=== PATIENT | female | born 1940 | race Caucasian/White ===

== ENCOUNTER → 2023-12-02 13:50 | Outpatient (REF) | payer OTHER, SELFPAY | LOC: HWRAD 13:50 | PROVIDERS: ATTENDING PHYSICIAN Internal Medicine Critical Care Medicine; FAMILY PHYSICIAN Family Medicine | DX: R91.8 Other nonspecific abnormal finding of lung field (principal) | CPT/HCPCS: 71046 ==

== ENCOUNTER → 2023-12-21 12:41 | Outpatient (REF) | payer OTHER, SELFPAY | LOC: HWRAD 12:41 | PROVIDERS: ATTENDING PHYSICIAN Internal Medicine Critical Care Medicine; FAMILY PHYSICIAN Family Medicine; REFERRING PHYSICIAN Specialist | DX: J44.9 Chronic obstructive pulmonary disease, unspecified (principal); R93.89 Abnormal findings on diagnostic imaging of other specified body structures; M17.11 Unilateral primary osteoarthritis, right knee | CPT/HCPCS: 71250; 73564 ==

== ENCOUNTER → 2024-01-11 15:58 | Outpatient (REF) | payer OTHER, SELFPAY | LOC: HWRAD 15:58 | PROVIDERS: ATTENDING PHYSICIAN Internal Medicine Critical Care Medicine; FAMILY PHYSICIAN Family Medicine | DX: J90 Pleural effusion, not elsewhere classified (principal) | CPT/HCPCS: 71046 ==

== ENCOUNTER → 2024-07-10 14:30 | Outpatient (REF) | payer OTHER, SELFPAY | LOC: HWRAD 14:30 | PROVIDERS: ATTENDING PHYSICIAN Internal Medicine Critical Care Medicine; FAMILY PHYSICIAN Family Medicine | DX: R91.8 Other nonspecific abnormal finding of lung field (principal) | CPT/HCPCS: 71250 ==

== ENCOUNTER → 2024-09-11 12:58 | Outpatient (REF) | payer OTHER, SELFPAY | LOC: HWWDC 12:58 | PROVIDERS: ATTENDING PHYSICIAN Family Medicine | DX: Z12.31 Encounter for screening mammogram for malignant neoplasm of breast (principal) | CPT/HCPCS: 77063; 77067 ==

== ENCOUNTER 2024-12-09 19:32 | Inpatient (IN) | payer OTHER, SELFPAY ==
[2024-12-09] VITALS (8 sets, daily range): BP systolic 106–159; BP diastolic 55–93; BMI 26.4; BMI 26.0
--- NOTE | 2024-12-09 15:26 | ED.GENMED ---
History of Present Illness
General
Chief Complaint: Fall
Source: patient
Time Seen by Provider: 12/09/24 14:52
History of Present Illness
History of Present Illness:
84-year-old female with past medical history of previous CVA, hypertension, hyperlipidemia, COPD, GERD, mild renal insufficiency, chronic pain syndrome stemming from previous right elbow fracture presenting to the emergency department after she
slipped on water on the bathroom floor Wednesday causing her to fall injuring her right hip and elbow, since that time has had progressive decreased ability to ambulate, only able to get up out of bed to use the commode that family put next to her
bed. Pain minimally controlled with her usual hydrocodone. Triage stated patient is on Eliquis however family believes she is on Plavix due to the previous CVA. Patient does not believe she had any head strike and denies any loss of consciousness
no other injuries were noted.
Past History
Past History
ED Past Medical History: COPD, CVA (06/2013), GERD, Hypercholesterolemia and Psychiatric (G.A.D.)
ED Past Surgical History: Tonsilectomy
Social History
Tobacco: Former smoker
Alcohol: Occasional
Drug: None
Personal:
Living: with family
Employment: Retired
Family History
Family History: Other (Reviewed and Noncontributory)
Review of Systems
Review of Systems
All Other Systems: ROS reviewed and negative except as documented in HPI and ROS
Phy Exam
Physical Exam
Physical Exam:
GENERAL: Alert , in no apparent distress
HEAD: Normocephalic atraumatic
EYE: Clear conjunctiva
NECK: Supple
ENT: o/p clr, mmm.
CARDIAC: Regular rate and rhythm .
LUNGS: Clear breath sounds bilaterally, no acute respiratory distress, no wheezes/rales/rhonchi
ABDOMEN: Soft, without focal tenderness, no r/g, no cvat
NEUROLOGICAL: Alert and oriented, no focal neuro deficits
SKIN: Warm and dry, 2 moderate-sized ecchymotic areas to the right lateral hip and then the right olecranon with direct tenderness over this area.
MUSCULOSKELETAL: No edema, well perfused. Patient allows for full range of motion of the right elbow with only mild discomfort. She is unable to flex or extend either leg at the pelvis secondary to pain/weakness. No focal areas of tenderness
below the knee. Patient is diffusely tender along the right lateral pelvis
PSYCH: Normal and appropriate interaction.
Scores
Heart Failure Risk
Heart Failure Risk Score: Not Applicable
Heart Score for Chest Pain Patients
STEMI patient?: Not applicable
Withdrawal Assessment of Alcohol
Withdrawal Assessment Completed?: Not applicable
Course
Orders/Labs/Results
Orders:
Orders
12/09/24 14:46
Elbow, 3 View, Right [CR Elbow - Right Min 3 Views] Urgent
Comment:
Reason For Exam: fall, pain
12/09/24 15:11
CT Head W/o Iv Contrast Urgent
Comment:
Reason For Exam: fall, anticoagulated
CT Pelvis W/o Iv Contrast Urgent
Comment:
Reason For Exam: fall, severe pain right hip/pelvis
Morphine Sulfate 4 mg IV NOW STA
12/09/24 15:30
Type+Screen Urgent
Basic Metabolic Panel Urgent
Complete Blood Count/With Diff Urgent
PTT Urgent
Prothrombin Time Urgent
12/09/24 15:37
Ondansetron Injectable [Zofran] 4 mg IV NOW STA
12/09/24 18:52
Admit/Transfer Patient As Directed
Co-Sign Provider:
Level of Care: Inpatient admission
Assign to:: Medical/Surgical
Physician / Group: [email or web address]
Diagnosis: acute pelvis Fx
Reason for Hospitalization: acute pelvis Fx, acute gait dysfunction, intractable pain
Expected length of stay greater than two midnights?: Yes
ELOS- Estimated Length of Stay in days: 3
I certify the patient meets the requirements for IP care: Yes
12/09/24 18:55
Code Status As Directed
Resuscitation Status: Full Code
Abnormal Lab Results
12/09/24
15:30
RBC 4.05 L 10^6/uL
(4.20-5.40)
MCH 31.9 H pg
(27.0-31.0)
MPV 10.8 H fL
(7.4-10.4)
Absolute Neuts (auto) 7.6 H 10^3/uL
(1.4-6.5)
Absolute Monos (auto) 0.7 H 10^3/uL
(0.1-0.6)
Lymphocytes % 17.4 L %
(20.5-51.1)
Glucose 131 H mg/dl
(70-99)
12/09/24 15:30
12/09/24 15:30
Vital Signs
Initial and Last Documented VS:
Initial Vital Signs
Temp Pulse Resp BP Pulse Ox
98.7 F 73 20 139/65 98
12/09/24 14:36 12/09/24 14:36 12/09/24 14:36 12/09/24 14:36 12/09/24 14:36
Last Documented Vital Signs
Temp Pulse Resp BP Pulse Ox
98.7 F 87 18 119/77 96
12/09/24 14:36 12/09/24 19:30 12/09/24 19:30 12/09/24 20:00 12/09/24 20:00
MDM/Problems Addressed
Differential Diagnosis Includes:
- Femur fracture
- Pelvic Fracture
- Traumatic bursitis
- Contusion
- Hematoma
- Elbow Fracture
- Elbow Contusion
- Electrolyte Imbalance
- Chronic Pain Syndrome
MDM/Problems Addressed:
84-year-old female presenting to the emergency department for evaluation after an accident lip and fall this past Wednesday, progressively has been having worsening ability to ambulate. Patient is unable to lift either leg up off her hospital bed
presently will obtain CT of the head given patient's reported anticoagulant status and will also obtain CT of the pelvis. X-ray of the right elbow ordered. Will treat pain with morphine. I anticipate patient will likely need admission for
rehab/SNF placement.
*Radiology
Radiology exam reviewed: radiology read reviewed
*Pulse Oximetry
SaO2: 98
Oxygen Mode of Delivery: Room air
Patient hypoxic: no
*Critical Care Note
Total Time (30-74mins, 75-104mins- exclusive of procedures): Not Applicable
Patient Management
Discussion with other providers: Hospitalist and Game Show Host
Escalation/DeEscalation of care consider admission/obs:
Patient has multiple right-sided pelvic fractures. I discussed the case and reviewed imaging with orthopedics who states patient okay to stay at this facility and they will see in consult. I notified the hospitalist team who accepts patient for
continued evaluation and treatment. Patient noting pain control with IV medications provided here.
ED Attending Note
-
Portions of this chart may have been created with voice recognition software.� Occasional wrong word or��sound alike� substitutions may have occurred due to the inherent limitations of voice recognition software.
Discharge Plan
Departure
Patient Disposition: Admit
Date of Disposition: 12/09/24
Time of Disposition: 17:38
Presentation/result/management discussed w/ accepting MD/DO: Hospitalist
Discharge Problem:
Closed fracture of right pelvis
Interventions
Interventions:
*Risk Screen - Suicide Last Done: 12/09/24 14:36
*General Assessment Last Done: 12/09/24 14:36
*Neglect/Abuse Screening Last Done: 12/09/24 18:02
*ED- Fall Risk Assessment Last Done: 12/09/24 18:02
*ED COVID-19 Vaccine History Last Done: 12/09/24 18:02
*Nursing Disposition Last Done: 12/09/24 20:05
ED-Musculoskeletal Assessment Last Done: 12/09/24 15:00
ED- Neurological Assessment Last Done: 12/09/24 15:00
ED-Skin Assessment Last Done: 12/09/24 15:00
Discharge Date and Time
Discharge Date/Time: 12/09/24 20:07
[2024-12-09] MEDS: MORPHINE SULFATE 4 MG IV (15:31)
[2024-12-09] MEDS: ZOFRAN 4 MG IV (15:41)
[2024-12-09 15:50] LABS: Hematocrit 37.5 % (37.0-47.0); Hemoglobin 12.9 g/dL (12.0-16.0); Mean Corp Hgb Conc. 34.4 g/dL (33.0-37.0); Mean Corpuscular Volume 92.6 fL (81.0-99.0); Platelet Count 179 10^3/uL (130-400); Red Cell Dist. Width 12.7 % (11.5-14.5)
[2024-12-09 15:52] LABS: APTT 30.6 Sec (23.4-35.0); INR 0.95; PT 13.0 Sec (11.4-14.6)
[2024-12-09 15:55] LABS: Blood Urea Nitrogen 14 mg/dl (7-17); Calcium 9.0 mg/dl (8.4-10.2); Carbon Dioxide 29 mmol/L (22-30); Chloride 107 mmol/L (98-107); Estimated Creatinine Clearance 44 ml/min; Glucose 131 mg/dl (70-99); Potassium 4.2 mmol/L (3.5-5.1); Sodium 138 mmol/L (135-145); eGFR > 60.00
[2024-12-09 16:15] LABS: Nucleated Red Blood Cells % 0 %
--- NOTE | 2024-12-09 18:48 | HPS.HSE ---
Family Physician
-
Family Physician: Elli Damian
Chief Complaint
-
Fall and pelvis Fx
History of Present Illness
HPI
84F HX previous CVA, hypertension, hyperlipidemia, COPD, GERD, mild renal insufficiency, chronic pain syndrome stemming from previous right elbow fracture presenting to the emergency department
- s/p slipped on water on the bathroom floor Wednesday causing her to fall injuring her right hip and elbow, since that time has had progressive decreased ability to ambulate, only able to get up out of bed to use the commode that family put next
to her bed.
- Pain minimally controlled with her usual hydrocodone.
- Triage stated patient is on Eliquis however family believes she is on Plavix due to the previous CVA.
- Patient does not believe she had any head strike and denies any loss of consciousness no other injuries were noted.
Medical History
Past Medical History
Past Medical History: Reports COPD, CVA (06/2023 ), GERD, Hypercholesterolemia and Psychiatric (ROXANA HX )
Past Surgical History: Reports Tonsilectomy
Social History
Tobacco: Former Smoker
Alcohol: None
Drug: None
Personal:
Living: With Family
Family History
Family History: Not pertinent
Allergies / Home Medications
Allergies reflects when Allergies were last updated in [employer].
Home Medications with original date entered in [employer]
Allergy/Medication List:
Allergies
Allergy/AdvReac Type Severity Reaction Status Date / Time
losartan (From Cozaar) Allergy Severe Tongue Verified 12/09/24 17:46
Swelling
Home Medications
atorvastatin 80 mg tablet 80 mg PO HS High Cholesterol 06/19/13
clopidogrel 75 mg tablet 75 mg PO DAILY Blood Clot Prevention/Tx 09/02/14
pantoprazole 40 mg tablet,delayed release 40 mg PO DAILY GERD 09/02/14
docusate sodium 100 mg capsule 100 mg PO BID Constipation 08/05/18
acetaminophen 500 mg tablet (Tylenol Extra Strength) 500 mg PO Q8HPRN PRN mild pain 10/10/21
buprenorphine 15 mcg/hour weekly transdermal patch 1 patch transdermal QWEEK Mental Health/Anxiety 04/17/23
citalopram 20 mg tablet 20 mg PO DAILY Mental Health/Anxiety 04/17/23
diazepam 5 mg tablet 5 mg PO HSPRN PRN anxiety 04/17/23
vitamins A,C,A-cwqm-yrusxb 2,148 mcg-113 mg-45 mg-17.4 mg tablet (PreserVision AREDS) 1 tab PO BID Supplement 04/17/23
amlodipine 5 mg tablet 5 mg PO DAILY #30 tabs 04/18/23
Lanacane Cream 1 applic topical DAILYPRN PRN apply to right thigh 12/09/24
betamethasone, augmented 0.05 % topical cream 1 applic topical BID apply to lower back 12/09/24
calcium carbonate 600 mg PO DAILY 12/09/24
cholecalciferol (vitamin D3) 50 mcg (2,000 unit) tablet 50 mcg PO DAILY 12/09/24
diclofenac sodium 1 % topical gel (Voltaren Arthritis Pain) 1 ea topical DAILY apply to B/L knees 12/09/24
fexofenadine 180 mg tablet 180 mg PO DAILY 12/09/24
hydrocodone 5 mg-acetaminophen 325 mg tablet 1 tab PO Q8H PRN severe pain 12/09/24
latanoprost 0.005 % eye drops 1 drp BOTH EYES HS 12/09/24
lidocaine 4 % topical patch 1 patch topical ONCE PRN apply to lower back 12/09/24
lidocaine 5 % topical patch (Lidoderm) 1 patch topical DAILYPRN PRN apply to lower back 12/09/24
polyethylene glycol 3350 17 gram/dose oral powder 17 g PO DAILYPRN PRN constipation 12/09/24
therapeutic multivitamin 1 tab PO DAILY 12/09/24
Review of Systems
-
Constitutional: Reports No Symptoms
EENT: Reports No Symptoms
Respiratory: Reports No Symptoms
Cardiac: Reports No Symptoms
Abdomen/GI: Reports No Symptoms
: Reports No Symptoms
Musculoskeletal: Reports See HPI
Skin: Reports No Symptoms
Neurological: Reports No Symptoms
Endocrine: Reports No Symptoms
Hematologic/Lymphatic: Reports No Symptoms
Psych: Reports No Symptoms
Physical Exam
Vital Signs
Vital Signs
Temp Pulse Resp BP Pulse Ox
98.7 F 78 16 138/55 92
12/09/24 14:36 12/09/24 17:30 12/09/24 17:30 12/09/24 17:00 12/09/24 17:30
Physical Exam
General: Well Developed, Well Nourished and No Apparent Distress
HEENT: NormoCephalic, Moist mucous membranes and Atraumatic
Respiratory: Clear
Cardiac: S1/S2 and Regular Rhythm; No Murmur or Rub
GI: Soft, Non Tender, Non Distended and Normal Bowel Sounds; No Organomegaly
Rectal: Deferred by Provider
Musculoskeletal: No Clubbing, No Cyanosis and No Edema
Skin: No Rash
Neuro: Nonfocal/grossly intact
Laboratory Results
-
12/09/24 15:30
12/09/24 15:30
Laboratory Results
PT 13.0 Sec (11.4-14.6) 12/09/24 15:30
INR 0.95 12/09/24 15:30
APTT 30.6 Sec (23.4-35.0) 12/09/24 15:30
Data Reviewed
-
CT Scan: Report Reviewed by me
Lab Data: Labs Reviewed by me
Old Records: Reviewed
Impression/Plan
-
Vital Signs
Temp Pulse Resp BP Pulse Ox
98.7 F 78 16 138/55 92
12/09/24 14:36 12/09/24 17:30 12/09/24 17:30 12/09/24 17:00 12/09/24 17:30
Abnormal Lab
12/09/24
15:30
RBC 4.05 L
MCH 31.9 H
MPV 10.8 H
Absolute Neuts (auto) 7.6 H
Absolute Monos (auto) 0.7 H
Lymphocytes % 17.4 L
Glucose 131 H
R Elbow XR
No evidence for acute fracture or dislocation.
NEG HCT
Pelvis CT W/o Iv Contrast
- Fracture of the junction of the anteromedial right acetabulum with the right superior pubic ramus.
- Fracture of the inferior pubic ramus.
- Subtle vertical fracture through the medial aspect of the right side of the symphysis pubis.
- Unusual curvilinear focus of air density within the right anteromedial and superior sacrum, as seen on images 21 through 25 of series 201 and images 52 through 55 of series 202. Etiology for this is uncertain, but perhaps a subtle fracture line
with air density within it, and the age of this finding is uncertain.
Last hospitalist admission: 04/17/23 -04/18/23
DC Dx
Angioedema
Dysuria
Benign essential hypertension
History of stroke with residual left facial droop
Chronic pain with opioid dependency
Chronic obstructive pulmonary disease
Gastroesophageal reflux disease
Constipation
ASSESSMENT & PLAN
Pending Rx reconciliation
Multiple acute Fxs ( R superior and inferior pubic ramus, R side of the symphysis pubis)
Acute gait dysfunction
Inadequate pain control as OP
S/P fall
- Fx set protocol and PRN analgesia
- Ortho consulted
Benign HTN
- cont amlodipine
HX CVA with residual left facial droop
- cont. Plavix
- cont. statin
HX Chronic pain
- cont home Willmar 4 times a day
HX COPD
Stable
- continue bronchodilators
GERD
- Continue PPI
DVT prophylaxis�Lovenox
Full code
IP MS
[2024-12-09] MEDS: COLACE 100 MG PO (20:53)
[2024-12-09] MEDS: SENOKOT 17.2 MG PO (20:53)
[2024-12-09] MEDS: TYLENOL 650 MG PO (20:54)
[2024-12-09] MEDS: LIPITOR 80 MG PO (20:59)
--- NOTE | 2024-12-09 21:21 | PTCARENOTE ---
Receive pt from ER. Pt alert oriented X3, in no distress. Pt pulled over to bed from stretcher, complains about pain on the right lower back, upper right hip, and right elbow. Pt pain=8/10 after movement. Pt oriented to the room, call aguilar within
reach, bed alarm in place. VSS (T=97.8, HR=80, RR=20, PY=328/66, SpO2=95% on RA). Tylenol schedule given for pain. Pt is resting comfortably in bed. Will continue to monitor the pt.
[2024-12-09] MEDS: DILAUDID 0.25 MG IV (22:28)
[2024-12-09] MEDS: XALATAN OPHTHALMIC SOLUTION 1 DROP BOTH EYES (22:28)
[2024-12-10] MEDS: TYLENOL 650 MG PO ×7 (00:05→23:26)
[2024-12-10] MEDS: DILAUDID 0.25 MG IV ×2 (04:32→12:07)
[2024-12-10 07:55] VITALS: BP 143/67
[2024-12-10] MEDS: SENOKOT 17.2 MG PO (08:28)
[2024-12-10] MEDS: CELEXA 20 MG PO (08:29)
[2024-12-10] MEDS: NORVASC 5 MG PO (08:29)
[2024-12-10] MEDS: COLACE 100 MG PO (08:29)
[2024-12-10] MEDS: PLAVIX 75 MG PO (08:29)
[2024-12-10] MEDS: ROXICODONE 5 MG PO ×2 (08:30→16:29)
[2024-12-10] MEDS: PROTONIX 40 MG PO (08:30)
[2024-12-10] MEDS: FLUOCINONIDE 0.05% CREAM 1 APPLIC TOPICAL ×2 (08:31→20:09)
--- NOTE | 2024-12-10 10:33 | W.PN.HOSP.TC ---
Today's Communication/Plan
-
PT OT, pain control, Ortho eval.
Assessment / Plan
Assessment / Plan
Physical exam:
General: Acute on chronically ill
HEENT: Normocephalic, Atraumatic and Moist Mucous Membranes
Respiratory: Clear to Auscultation; Negative Wheezes, Rales or Rhonchi
Cardiac: Regular Rhythm and S1/S2
GI: Soft, Nontender and Nondistended
Musculoskeletal: Pain in the pelvic area. No Clubbing, No Cyanosis and No Edema
Neuro: Awake, Alert and Oriented, no neurological deficits but generalized weakness
Psych: Calm
A/P:
Fall and multiple pelvic fractures:
Continue pain control
Orthopedic consult appreciated and recommended weightbearing as tolerated right lower extremity
PT OT eval
Updated son over the phone today, Rene
Case management for discharge disposition
Benign HTN
- cont amlodipine
HX CVA with residual left facial droop & dysarthria
- cont. Plavix
- cont. statin
HX COPD
Stable
- continue bronchodilators
GERD
- Continue PPI
Chronic pain syndrome with narcotic dependence:
Continue chronic pain meds
DVT prophylaxis�Lovenox
Full code
Anticipated Discharge: 24 - 48 hours
Subjective/Interval History
-
Date of Service: December 10, 2024
Patient has pain in the pelvic area mostly with movement and not much at rest. No nausea vomiting or diarrhea.
Objective Data
-
Vital Signs:
Vital Signs
Temp Pulse Resp BP Pulse Ox
97.4 F 84 20 143/67 93
12/10/24 07:55 12/10/24 08:29 12/10/24 07:55 12/10/24 08:29 12/10/24 08:27
--- NOTE | 2024-12-10 10:58 | CON.ORTHO ---
Consultation - Orthopedics
History
HPI: 84-year-old female history of CVA chronic pain presented emergency department status post fall on Wednesday with right hip pain and difficulty bearing weight. She was subsequently found to have multiple pelvic fractures was admitted to the
hospital service. Orthopedics was consulted for further evaluation and treatment. This morning patient localizes pain to the right groin. She reports that she lives at home with her son. She reports falling on Wednesday and really wished to not
come to the hospital in hopes that it would heal on her own. Because of persistent pain, she did ultimately present to the emergency department.
Allergies / Home Medications
Past medical history: COPD, CVA, GERD, hypercholesterolemia, chronic pain
Past surgical history: Tonsillectomy, right elbow arthroplasty
Social history: Former smoker, lives at home with son, community ambulator reportedly
Family history: Not pertinent
Allergy/AdvReac Type Severity Reaction Status Date / Time
losartan (From [employer]) Allergy Severe Tongue Verified 12/09/24 17:46
Swelling
�Medication �Instructions �Recorded
atorvastatin 80 mg tablet 80 mg PO HS High Cholesterol 06/19/13
clopidogrel 75 mg tablet 75 mg PO DAILY Blood Clot 09/02/14
Prevention/Tx
pantoprazole 40 mg tablet,delayed 40 mg PO DAILY GERD 09/02/14
release
docusate sodium 100 mg capsule 100 mg PO BID Constipation 08/05/18
acetaminophen 500 mg tablet 500 mg PO Q8HPRN PRN mild pain 10/10/21
(Tylenol Extra Strength)
buprenorphine 15 mcg/hour weekly 1 patch transdermal QWEEK Mental 04/17/23
transdermal patch Health/Anxiety
citalopram 20 mg tablet 20 mg PO DAILY Mental 04/17/23
Health/Anxiety
diazepam 5 mg tablet 5 mg PO HSPRN PRN anxiety 04/17/23
vitamins A,C,P-jcat-hskhsr 2,148 1 tab PO BID Supplement 04/17/23
mcg-113 mg-45 mg-17.4 mg tablet
(PreserVision AREDS)
amlodipine 5 mg tablet 5 mg PO DAILY #30 tabs 04/18/23
Lanacane Cream 1 applic topical DAILYPRN PRN 12/09/24
apply to right thigh
betamethasone, augmented 0.05 % 1 applic topical BID apply to 12/09/24
topical cream lower back
calcium carbonate 600 mg PO DAILY Supplement 12/09/24
cholecalciferol (vitamin D3) 50 50 mcg PO DAILY Supplement 12/09/24
mcg (2,000 unit) tablet
diclofenac sodium 1 % topical gel 1 ea topical DAILY apply to B/L 12/09/24
(Voltaren Arthritis Pain) knees
fexofenadine 180 mg tablet 180 mg PO DAILY Allergies 12/09/24
hydrocodone 5 mg-acetaminophen 325 1 tab PO Q8H PRN severe pain 12/09/24
mg tablet
latanoprost 0.005 % eye drops 1 drp BOTH EYES HS Eye Condition 12/09/24
lidocaine 4 % topical patch 1 patch topical ONCE PRN apply to 12/09/24
lower back
lidocaine 5 % topical patch 1 patch topical DAILYPRN PRN apply 12/09/24
(Lidoderm) to lower back
polyethylene glycol 3350 17 17 g PO DAILYPRN PRN constipation 12/09/24
gram/dose oral powder
therapeutic multivitamin 1 tab PO DAILY Supplement 12/09/24
Vital Signs / Lab Results
Temp Pulse Resp BP Pulse Ox
97.4 F 84 20 143/67 93
12/10/24 07:55 12/10/24 08:29 12/10/24 07:55 12/10/24 08:29 12/10/24 08:27
12/09/24 15:30
12/09/24 15:30
10 point review systems reviewed and negative unless otherwise stated
General: Pleasant, no acute distress at rest musculoskeletal right lower extremity
Skin intact, no erythema or ecchymotic staining
Leg lengths equal
No significant pain with logroll
There is tenderness palpation of the groin
Positive EHL, FHL, ankle dorsiflexion, plantarflexion
Sensation tact light touch nondisplaced distally
Brisk cap refill
There are some ecchymotic staining noted over right elbow, no crepitus palpable, no other areas of bony tenderness palpation or crepitus along bones or joints on tertiary exam
Diagnostic studies
CT scan independently viewed by myself. Radiology report reviewed. Minimally displaced right sided inferior pubic rami fracture. Minimally displaced right pubic root fracture. Questionable sacral impaction fracture
Assessment / Plan
84-year-old female status post fall right hemipelvis fracture consistent with LC 1 type injury. I recommend weightbearing to patient's tolerance with the aid of a walker. Mobilization with physical therapy and pain control. Baseline Eliquis for
DVT prophylaxis. Patient can follow-up outpatient with myself or another provider in 3 to 4 weeks for repeat clinical assessment repeat radiographs. Would recommend obtaining pelvic x-rays for comparison outpatient basis.
Weightbearing as tolerated right lower extremity
PT OT
Pain control
Medical management per primary team
DVT prophylaxis: Baseline Eliquis
Follow-up outpatient 3 to 4 weeks
[2024-12-10 12:10] VITALS: BP 142/68; BP 155/77; PULSE 86; O2SAT 93
[2024-12-10 13:32] VITALS: BP 142/68; PULSE 85; O2SAT 93
[2024-12-10 15:55] VITALS: BP 132/77
[2024-12-10] MEDS: LOVENOX 40 MG SC (18:11)
[2024-12-10] MEDS: COLACE PO (20:09)
[2024-12-10] MEDS: SENOKOT PO (20:29)
[2024-12-10] MEDS: REMOVE LIDOCAINE PATCH REMOVE (20:30)
[2024-12-10] MEDS: LIPITOR 80 MG PO (21:08)
[2024-12-10] MEDS: XALATAN OPHTHALMIC SOLUTION 1 DROP BOTH EYES (21:09)
[2024-12-10 23:26] VITALS: BP 127/67
[2024-12-11] MEDS: TYLENOL 650 MG PO ×4 (04:45→21:35)
[2024-12-11 07:05] VITALS: BP 118/71
[2024-12-11] MEDS: PROTONIX 40 MG PO (08:22)
[2024-12-11] MEDS: COLACE PO ×2 (08:23→21:35)
[2024-12-11] MEDS: FLUOCINONIDE 0.05% CREAM 1 APPLIC TOPICAL ×2 (08:23→21:36)
[2024-12-11] MEDS: CELEXA 20 MG PO (08:23)
[2024-12-11] MEDS: PLAVIX 75 MG PO (08:23)
[2024-12-11] MEDS: SENOKOT PO ×2 (08:23→21:35)
[2024-12-11] MEDS: NORVASC 5 MG PO (08:29)
--- NOTE | 2024-12-11 08:58 | W.PN.HOSP.TC ---
Today's Communication/Plan
-
dc planning
Assessment / Plan
Assessment / Plan
Physical exam:
General: not in distress, chronically ill
HEENT: Normocephalic, Atraumatic and Moist Mucous Membranes
Respiratory: Clear to Auscultation; Negative Wheezes, Rales or Rhonchi
Cardiac: Regular Rhythm and S1/S2
GI: Soft, Nontender and Nondistended
Musculoskeletal: No Clubbing, No Cyanosis and No Edema
Neuro: Awake, Alert and Oriented, no neurological deficits.
Psych: Calm
A/P:
Fall and multiple pelvic fractures:
Continue pain control
Orthopedic consult appreciated and recommended weightbearing as tolerated right lower extremity
PT OT eval
Case management for discharge disposition
Benign HTN
- cont amlodipine
HX CVA with residual left facial droop & dysarthria
- cont. Plavix
- cont. statin
HX COPD
Stable
- continue bronchodilators
GERD
- Continue PPI
Chronic pain syndrome with narcotic dependence:
Continue chronic pain meds
DVT prophylaxis�Lovenox
Full code
Total discharge time spent to see the patient, examine the patient, review data and lab result, discuss dfischarge plan with patient, nursing staff around 65 minutes
Anticipated Discharge: Today
Subjective/Interval History
-
Date of Service: December 11, 2024
No chest pain
No sob
Objective Data
-
Vital Signs:
Vital Signs
Temp Pulse Resp BP Pulse Ox
98.5 F 114 18 118/71 97
12/11/24 07:05 12/11/24 08:29 12/11/24 07:05 12/11/24 08:29 12/11/24 08:19
I&O
07/06/25 07/07/25 07/08/25
06:59 06:59 06:59
Intake Total 1260 / 1260
Output Total 725 / 725
Balance 535 / 535
[2024-12-11] MEDS: TYLENOL PO (12:04)
[2024-12-11] MEDS: ROXICODONE 5 MG PO ×2 (12:11→21:40)
[2024-12-11] MEDS: LIDOCAINE 4% PATCH 1 PATCH TOPICAL (12:11)
[2024-12-11 15:11] VITALS: BP 117/77
[2024-12-11 15:57] VITALS: BP 117/77
[2024-12-11 16:05] VITALS: BP 117/77
--- NOTE | 2024-12-11 16:10 | PTCARENOTE ---
Pt AAO x3, sl anxious at times. HERNANDEZ; OOB to chair/BSC with assist x2/walker, pt needs much encouragement to participate in OOB activity; reluctant to bear weight. VSS. On room air- pulse ox 94%, no SOB noted. Abd soft, rounded, radha PO. Pt having
small amts loose fischer BM; passing laerge amts flatus. Voids on BSC. Resting in chair at present. Cesar continue to monitor.
[2024-12-11] MEDS: LOVENOX 40 MG SC (17:26)
--- NOTE | 2024-12-11 17:34 | CM ---
Alert awake oriented patient who lives with her 2 sons Les López in a condo with 3 steps to enter and 12 steps to bed /bathroom.She needs some assistance with activities of daily living.PT OT indicate SNF . Spoke with dgt . She requested acute rehab
[facility]. LM with MD for PMR consult and requested Maggy Doty rep to assess case.PAc data given to dgt for SNF placement which is what PT recombined.
Never had VN/SNF
Pharmacy [facility]
PCP Dr Damian
PLAN Acute rehab VS SNF after auth
[2024-12-11] MEDS: REMOVE LIDOCAINE PATCH 1 PATCH REMOVE (21:35)
[2024-12-11] MEDS: LIPITOR 80 MG PO (21:35)
[2024-12-11] MEDS: XALATAN OPHTHALMIC SOLUTION 1 DROP BOTH EYES (21:36)
[2024-12-11 23:14] VITALS: BP 120/68
[2024-12-12] MEDS: TYLENOL PO (01:21)
[2024-12-12] MEDS: VALIUM 5 MG PO (01:58)
[2024-12-12] MEDS: TYLENOL 650 MG PO ×6 (04:42→23:02)
[2024-12-12] MEDS: DILAUDID 0.25 MG IV (04:42)
[2024-12-12 07:39] VITALS: BP 161/84
[2024-12-12] MEDS: SENOKOT 17.2 MG PO ×2 (08:31→20:41)
[2024-12-12] MEDS: COLACE 100 MG PO ×2 (08:31→20:40)
[2024-12-12] MEDS: PROTONIX 40 MG PO (08:32)
[2024-12-12] MEDS: FLUOCINONIDE 0.05% CREAM 1 APPLIC TOPICAL ×2 (08:32→20:41)
[2024-12-12] MEDS: PLAVIX 75 MG PO (08:32)
[2024-12-12] MEDS: NORVASC 5 MG PO (08:32)
[2024-12-12] MEDS: CELEXA 20 MG PO (08:32)
--- NOTE | 2024-12-12 09:11 | W.PN.HOSP.TC ---
Today's Communication/Plan
-
Await dc planning per social work case manager
Assessment / Plan
Assessment / Plan
Physical exam:
General: not in distress, chronically ill
HEENT: Normocephalic, Atraumatic and Moist Mucous Membranes
Respiratory: Clear to Auscultation; Negative Wheezes, Rales or Rhonchi
Cardiac: Regular Rhythm and S1/S2
GI: Soft, Nontender and Nondistended
Musculoskeletal: No Clubbing, No Cyanosis and No Edema
Neuro: Awake, Alert and Oriented, no neurological deficits.
Psych: Calm
A/P:
Fall and multiple pelvic fractures:
Continue pain control
Orthopedic consult appreciated and recommended weightbearing as tolerated right lower extremity
PT OT eval
Case management for discharge disposition
Benign HTN
- cont amlodipine
HX CVA with residual left facial droop & dysarthria
- cont. Plavix
- cont. statin
HX COPD
Stable
- continue bronchodilators
GERD
- Continue PPI
Chronic pain syndrome with narcotic dependence:
Continue chronic pain meds
DVT prophylaxis�Lovenox
Full code
Total discharge time spent to see the patient, examine the patient, review data and lab result, discuss dfischarge plan with patient, nursing staff around 65 minutes
Anticipated Discharge: Today
Subjective/Interval History
-
Date of Service: December 12, 2024
No chest pain
No sob
No headache
Objective Data
-
Vital Signs:
Vital Signs
Temp Pulse Resp BP Pulse Ox
97.4 F 89 18 161/84 94
12/12/24 07:39 12/12/24 07:39 12/12/24 07:39 12/12/24 07:39 12/12/24 07:39
I&O
12/11/24 12/12/2425
06:59 06:59 06:59
Intake Total 1260 / 1260 1200 / 1200
Output Total 725 / 725 100 / 100
Balance 535 / 535 1100 / 1100
[2024-12-12] MEDS: ROXICODONE 5 MG PO ×3 (11:30→23:02)
[2024-12-12] MEDS: CLARITIN 10 MG PO (12:08)
[2024-12-12 12:21] VITALS: BP 121/90
[2024-12-12 12:55] VITALS: O2SAT 98
--- NOTE | 2024-12-12 13:03 | CM ---
CM reviewed chart and noted dc order
Call with [facility]- PMR pending and will await outcome
Call with [place]/[facility] who is in agreement with SNF backup referrals
Referrals sent via [facility]- [facility] is 1st choice if not accepted to [facility]
Role of PMR and IBC auth explained in approval for acute vs SNF
Discharge Disposition- acute vs SNF
[2024-12-12] MEDS: LIDOCAINE 4% PATCH 1 PATCH TOPICAL (13:05)
--- NOTE | 2024-12-12 14:14 | PN.CDI ---
Addendum entered and electronically signed by Ashley Arreola MD 12/13/24 06:31:
Low level fall only
Original Note:
CDI
- -
CDI:
Physician Documentation Request
Admit Date: 12/09/24 19:32
Dear Doctor Maxwell,
Patient admitted with fall and multiple pelvic fractures.
H&P,'....s/p slipped on water on the bathroom floor Wednesday causing her to fall injuring her right hip.'
12/15/22 Bone Density Survey, 'IMPRESSION: Osteopenia.'
Please provide in your note the likely etiology/etiologies of the documented pelvic fractures:
Multifactorial due to low level fall and age-related osteoporosis
Low level fall only
Other
Use of terms such as suspected, likely, concern for, or probable (associated with a specific diagnosis that is being evaluated, monitored, or treated as if it exists) are acceptable and can be coded in the inpatient setting, when documented at the
time of discharge.
Thank you,
Parul WALKER,RN,CCDS
CDI Specialist
Available via [place] text
Please use your independent medical judgment in providing your response.
[2024-12-12 15:40] VITALS: BP 139/73
[2024-12-12] MEDS: LOVENOX 40 MG SC (18:05)
--- NOTE | 2024-12-12 18:26 | CON.MD ---
Consultation - Medical
-
Chief Complaint:�Pelvic fracture
�
History of Present Illness:�84-year-old right-handed female with PMH (as below) presented to [facility] on 12/09/2024 after slipping on water in the bathroom with a fall landing on her right hip and elbow with decreased ability to ambulate.
Patient does not think she struck her head. 12/09 CT of the head with no acute intracranial abnormality. 12/09 CT of pelvis noting right anterior medial acetabular/right superior pubic ramus junction fracture, inferior pubic ramus fracture, subtle
right symphysis pubis and possible right anteromedial and superior sacral fracture. 12/09 x-ray of the left elbow with no evidence for acute fracture or dislocation. Seen by orthopedics with right hemipelvis fracture consistent with an LC 1 type
injury with recommendation for weightbearing as tolerated with use of rolling walker.
�
Past Medical History:�previous CVA with left facial droop, hypertension, hyperlipidemia, COPD, GERD, mild renal insufficiency, chronic pain syndrome stemming from previous right elbow fracture, general anxiety disorder, constipation, macular
degeneration
Procedure History:�Tonsillectomy, right elbow arthroplasty
Family History:�Son with CVA
�
Social History:�
Functional Level Premorbidly:�Independent with all activities�
Functional Level Currently:�Min assist for bed mobility and transfer. Ambulating 5 feet with rolling walker min assist. Max assist toileting and lower extremity self-care.
�
Tobacco:�Former smoker
Alcohol:�Denies�
Drug use:�Denies�
�
Lives with:�Son
24-hour assistance available:�Yes
Number of floors:�2 story [facility]
# steps to enter:�3
# steps to second floor: 14
Potential First floor set up:�Yes
Driving:�No
Occupation:�Retired
�
�
Allergies:�
Allergy/AdvReac Type Severity Reaction Status Date / Time
losartan (From Cozaar) Allergy Severe Tongue Verified 12/09/24 17:46
Swelling
�
Review of Systems:�
Constitutional: (x) abNormal _fatigue
Eye: (x) Normal _
Ear/Nose/Throat: (x) Normal _
Respiratory: (x) Normal _
Cardiovascular: (x) Normal _
Gastrointestinal: (x) Normal _
Genitourinary: (x) Normal _
Musculoskeletal: (x) abNormal _pelvic pain with moving legs, sitting too long, standing
Integumentary: (x) abNormal _bruising right elbow
Neurologic: (x) Normal _
Psychiatric: (x) Normal _
Endocrine: (x) Normal _
Hematologic/Lymphatic: (x) Normal _
Allergic/Immunologic: (x) Normal _
�
Medications:�
Active Current Visit Medication List
Category Date Time Status
Acetaminophen [Tylenol] Med 12/09/24 20:17 Active
650 mg PO Q4HWA
Amlodipine [Norvasc] Med 12/10/24 08:00 Active
5 mg PO DAILY
Atorvastatin [Lipitor] Med 12/09/24 22:00 Active
80 mg PO HS
Citalopram [Celexa] Med 12/10/24 08:00 Active
20 mg PO DAILY
Clopidogrel Bisulfate [Plavix] Med 12/10/24 08:00 Active
75 mg PO DAILY
Diazepam [Valium] Med 12/09/24 20:17 Active
5 mg PO HSPRN PRN anxiety
Docusate Sodium [Colace] Med 12/09/24 20:17 Active
100 mg PO BID
Enoxaparin Sodium [Lovenox] Med 12/10/24 18:00 Active
40 mg SC QPM
Fluocinonide [Fluocinonide 0.05% Cream] Med 12/10/24 08:00 Active
See Dose Instructions TOPICAL BID
Latanoprost [Xalatan Ophthalmic Solution] Med 12/09/24 22:00 Active
See Dose Instructions BOTH EYES HS
Lidocaine [Lidocaine 4% Patch] Med 12/09/24 20:17 Active
1 patch TOPICAL DAILYPRN PRN apply to lower back
Magnesium Hydroxide [Milk of Magnesia] Med 12/09/24 20:17 Active
30 ml PO DAILYPRN PRN
Oxycodone [Roxicodone] Med 12/12/24 12:51 Active
2.5 mg PO Q4HPRN PRN
Oxycodone [Roxicodone] Med 12/12/24 18:00 Active
5 mg PO Q6
Pantoprazole [Protonix] Med 12/10/24 08:00 Active
40 mg PO DAILY
Polyethylene Glycol Powder [Miralax] Med 12/09/24 20:47 Active
17 grams PO DAILYPRN PRN
Pt Own Bupren Patch 15Mcg/Hr [Butrans 15 Mcg/Hr Patch Med 12/09/24 20:17 Pending
Patient Own]
1 patch TRANSDERM Q7D
Remove Patch [Remove Lidocaine Patch] Med 12/10/24 20:00 Active
See Dose Instructions REMOVE DAILY@2000
Remove Pt Own Buprenorph Patch [Remove Pt Own Butrans Med 12/09/24 20:17 Pending
Patch]
See Dose Instructions REMOVE Q7D
Sennosides [Senokot] Med 12/09/24 20:17 Active
17.2 mg PO BID
Tamsulosin [Flomax] Med 12/09/24 20:17 Active
0.4 mg PO DAILYPRN PRN
�
Vitals:�
Temp Pulse Resp BP Pulse Ox
98 F 80 18 139/73 95
12/12/24 15:40 12/12/24 15:40 12/12/24 15:40 12/12/24 15:40 12/12/24 15:40
Height 5 ft 4 in
Actual Weight 68.577 kg
Body Mass Index (BMI) 26.0
�
Physical Exam:�
General Appearance/Observation: Well-developed, well-nourished female in no apparent distress.�
Pain/Comfort Assessment: Can have severe right pelvic pain with activity, standing, prolonged sitting.
Mood/Affect: Appropriate, mildly anxious
�
Integumentary/Operative Site:�
�� Pressure Ulcer Evaluation: Right elbow bruising
�
Eyes: Conjunctiva/Lids: normal��� Pupils: pupils equal round and reactive to light and Accommodation
Ears/Nose/Throat: oral mucosa moist, throat clear.������������ Lips/Teeth/Gums: normal
Neck: No muscle spasm or tenderness�
Cardiovascular: Heart: regular, no murmur�
Pulses: dorsalis pedis 2+ bilaterally�
Respiratory: Respiratory Effort/Chest Expansion: normal������ Auscultation: Clear to auscultation bilaterally
Gastrointestinal: abdomen not tender, no distension, normal abdominal bowel sounds
Genitourinary: No [place]�
Rectal Exam: Deferred�
Extremities:�Edema: None�Cyanosis: None�Trophic�changes: None
�
Neurology Exam:
Orientation: Alert, Oriented to self, Time, Place�
Memory: Mildly impaired
Comprehension: Intact
Two step command: Intact
Cranial Nerves:
�� CNII:�Pupillary light reflex: Intact���Visual Field: Intact
�� CN III, IV, : Extraocular muscles: Intact�
�� CN V:�Facial Sensation�at�Forehead: Intact,�Maxilla: Intact,�Mandible: Intact
�� CN VII:�Facial movement: Slight left facial asymmetry
�� CN VIII:�Hearing: Hard of hearing affecting conversation and understanding
�� CN IX/X:�Speech & swallow: Normal,�Position of Uvula: Midline
�� CN XI:�Shoulder shrug: Symmetric
�� CN XII:�Tongue protrusion: Midline
Sensory:
�� Light touch: Intact in bilateral upper and lower extremities
�
Reflexes:
�� Biceps: 2+ bilaterally
�� Brachioradialis: 2+ bilaterally
�� Triceps: 2+ bilaterally
�� Patellar: 2+ bilaterally
�� Achilles: 2+ bilaterally
�� Babinski: Down going bilaterally
�� Clonus: None
�� Antonio: Negative bilaterally�
Cerebellar: Dysmetria/Ataxia: None�
Musculoskeletal: Motor: (Manual muscle scale 0-5)�
Muscle SA EF WE EE FF FA HF KE DF EHL PF
Right� 5 5 5 5 5 5 1* 3* 4* 3*
Left 4 5 5 5 5 4 2+* 5 4 4
�*pain limitation
Tone: Normal in all extremities�
Range of Motion: Passively within normal limits in all extremities�
�
Lab Results
Laboratory Data
12/09/24 15:30
12/09/24 15:30
PT 13.0 Sec (11.4-14.6) 12/09/24 15:30
INR 0.95 12/09/24 15:30
APTT 30.6 Sec (23.4-35.0) 12/09/24 15:30
�
Diagnostic Results:�as per HPI�
12/09 CT of pelvis noting (Fracture of the junction of the anteromedial right acetabulum with the right superior pubic ramus. Fracture of the inferior pubic ramus. Subtle vertical fracture through the medial aspect of the right side of the symphysis
pubis. Unusual curvilinear focus of air density within the right anteromedial and superior sacrum, as seen on images 21 through 25 of series 201 and images 52 through 55 of series 202. Etiology for this is uncertain, but perhaps a subtle fracture
line with air density within it, and the age of this finding is uncertain).�
Assessment
84-year-old riRght-handed F PMH (previous CVA with left facial droop, hypertension, hyperlipidemia, COPD, GERD, mild renal insufficiency, chronic pain syndrome stemming from previous right elbow fracture, general anxiety disorder, constipation,
macular degeneration) with 12/09/2024 right anterior medial acetabular/right superior pubic ramus junction fracture, inferior pubic ramus fracture, subtle right symphysis pubis and possible right anteromedial and superior sacral fractures resulting in
ADL and amatory dysfunction.
�
Plan�
PM&R�PT/OT to increase independence with ADLs, improve balance, coordination, endurance, strength, mobility, community reintegration, decreased burden of care on others and family education.�
�
Pelvic fractures: Weightbearing as tolerated with use of rolling walker. Has significant pain with activity as expected. Limited activity tolerance. Pain management.
-Had a right elbow fracture in the past couple of years. Suggest follow-up with primary care provider and bone density scan. Spoke with her son who said that she has a repeat scan scheduled for January.
History of CVA with left nondominant hemiparesis: Secondary prophylaxis with Plavix, statin, and blood pressure control.
Chronic pain from right elbow fracture: Butrans
�
HTN: continue medications, monitor closely�
HLD: Statin�
COPD: Noted, not currently on medication
Psych: On Celexa. Valium as needed at night.
Skin: monitor for pressure sores/rashes/lesions.�
Pain: acetaminophen or oxycodone as needed.�
Bowel: Colace and Senna, PRN bisacodyl.�
Bladder: Time void, PVRs, PRN straight cath.�
GERD: Protonix
DVT Prophylaxis: Mechanical and Lovenox
Pulmonary: Incentive spirometry�
Safety: Continue to reinforce assistance with all transfers.�
Code Status:� Full code
Dispo�(date/plan/equipment needs): Home with family care.� Social history reviewed.�
Functional and Medical Goals:�Modified Independent with ADL�s, ambulation, transfers�
Discharge Destination:�[facility] facility, I do not believe she can tolerate 3 hours of therapy a day and I do not think be to her benefit to have the increased pain levels in terms of her having a faster recovery or better recovery.
A total of 60 minutes were spent with the patient preparing for the evaluation, obtaining history, performing examination and evaluation, counseling, data review, case management, care coordination, order processing manager, and EMR documentation. Discussed
options and plan in detail with patient and then her 2 sons. All questions answered.
�
Summary of recommendations:
-�Discharge Destination:�[facility] facility
�
Thank you for allowing me to care for your patient. Please contact me with any questions or concerns.
Consultation
-
Date/Time Consultation Performed: 12/12/24
Requesting Provider: Dr. Ashley Arreola
Performing Provider: Dr. Corbin Conrad
Reason for Consultation: Pelvic fracture
[2024-12-12] MEDS: REMOVE LIDOCAINE PATCH 1 PATCH REMOVE (20:42)
[2024-12-12] MEDS: XALATAN OPHTHALMIC SOLUTION 1 DROP BOTH EYES (20:43)
[2024-12-12] MEDS: LIPITOR 80 MG PO (20:43)
[2024-12-12 23:05] VITALS: BP 130/70
[2024-12-13] MEDS: TYLENOL PO (04:19)
[2024-12-13] MEDS: ROXICODONE 5 MG PO ×3 (06:13→17:57)
[2024-12-13] MEDS: REMOVE PT OWN BUTRANS PATCH 1 PATCH REMOVE (07:06)
[2024-12-13] MEDS: BUTRANS 15 MCG/HR 1 PATCH TRANSDERM (07:06)
[2024-12-13 07:13] LABS: Hematocrit 36.2 % (37.0-47.0); Hemoglobin 12.2 g/dL (12.0-16.0); Mean Corp Hgb Conc. 33.7 g/dL (33.0-37.0); Mean Corpuscular Volume 94.8 fL (81.0-99.0); Platelet Count 208 10^3/uL (130-400); Red Cell Dist. Width 13.0 % (11.5-14.5)
[2024-12-13 07:35] LABS: Blood Urea Nitrogen 21 mg/dl (7-17); Calcium 8.6 mg/dl (8.4-10.2); Carbon Dioxide 28 mmol/L (22-30); Chloride 108 mmol/L (98-107); Estimated Creatinine Clearance 44 ml/min; Glucose 92 mg/dl (70-99); Potassium 3.6 mmol/L (3.5-5.1); Sodium 140 mmol/L (135-145); eGFR > 60.00
[2024-12-13 07:57] VITALS: BP 158/69
[2024-12-13] MEDS: NORVASC 5 MG PO (08:23)
[2024-12-13] MEDS: SENOKOT 17.2 MG PO (08:23)
[2024-12-13] MEDS: COLACE 100 MG PO (08:23)
[2024-12-13] MEDS: PLAVIX 75 MG PO (08:23)
[2024-12-13] MEDS: CELEXA 20 MG PO (08:23)
[2024-12-13] MEDS: PROTONIX 40 MG PO (08:23)
[2024-12-13] MEDS: FLUOCINONIDE 0.05% CREAM 1 APPLIC TOPICAL (08:24)
--- NOTE | 2024-12-13 09:28 | W.PN.HOSP.TC ---
Addendum entered and electronically signed by Ashley Arreola MD 12/13/24 11:25:
Addendum
d/w daughter who is visiting the pt, change laxatives to PRN
Also requested to call pain doctor Dr Bubba Romano to discuss
End
Original Note:
Today's Communication/Plan
-
dc
Scripts in chart
Assessment / Plan
Assessment / Plan
Physical exam:
General: not in distress, chronically ill
HEENT: Normocephalic, Atraumatic and Moist Mucous Membranes
Respiratory: Clear to Auscultation; Negative Wheezes, Rales or Rhonchi
Cardiac: Regular Rhythm and S1/S2
GI: Soft, Nontender and Nondistended
Musculoskeletal: No Clubbing, No Cyanosis and No Edema
Neuro: Awake, Alert and Oriented, no neurological deficits.
Psych: Calm
A/P:
Fall and multiple pelvic fractures:
Continue pain control
Orthopedic consult appreciated and recommended weightbearing as tolerated right lower extremity
PT OT eval
Case management for discharge disposition
Benign HTN
- cont amlodipine
HX CVA with residual left facial droop & dysarthria
- cont. Plavix
- cont. statin
HX COPD
Stable
- continue bronchodilators
GERD
- Continue PPI
Chronic pain syndrome with narcotic dependence:
Continue chronic pain meds
DVT prophylaxis�Lovenox
Full code
Total discharge time spent to see the patient, examine the patient, review data and lab result, discuss dfischarge plan with patient, nursing staff around 65 minutes
Anticipated Discharge: Today
Subjective/Interval History
-
Date of Service: December 13, 2024
No chest pain
No sob
No fevers
Objective Data
-
Labs:
Laboratory Results
12/13/24
05:46
WBC 7.1
Hgb 12.2
Hct 36.2 L
Plt Count 208
Sodium 140
Potassium 3.6
Chloride 108 H
Carbon Dioxide 28
BUN 21 H
Creatinine 0.8
Glucose 92
Calcium 8.6
Vital Signs:
Vital Signs
Temp Pulse Resp BP Pulse Ox
97.5 F 82 18 158/69 92
12/13/24 07:57 12/13/24 07:57 12/13/24 07:57 12/13/24 07:57 12/13/24 07:57
I&O
12/12/24 12/13/24 12/14/24
06:59 06:59 06:59
Intake Total 1200 / 1200 480 / 480
Output Total 100 / 100
Balance 1100 / 1100 480 / 480
[2024-12-13] MEDS: ROXICODONE 2.5 MG PO (10:07)
[2024-12-13] MEDS: TYLENOL 500 MG PO ×2 (11:36→17:58)
--- NOTE | 2024-12-13 12:12 | CM ---
Addendum entered by Aida Stone RN 12/13/24 15:33:
Addendum report [facility] is [phone]
Addendum entered by Aida Stone RN 12/13/24 14:05:
Spoke with Maggy Sarahe 63 at [phone] . Clinical provided 6 skilled days approved with auth #[id number] NRD on 12/18/24 call [phone].
[facility] notified.Covid negative .
Pending ambulance approval # [id number] awaiting medical cost consultant clearance .
Original Note:
Reviewed which SNF could accept pt with dgt . They picked [facility] .
[facility] requested Covid test . MD notified to order.
NPI given OT notified for update eval .IMM reviewed with dgt and pt .
Dgt requested MD to adjust pain meds.
Family requested ambulance Medical nec form completed
[facility]
report [phone]
fax [phone]
PLAN:To [facility] after auth obtained
[2024-12-13 12:35] VITALS: BP 164/79; PULSE 83; O2SAT 98
[2024-12-13 13:07] LABS: COVID-19 Antigen Negative (Negative)
[2024-12-13 15:25] VITALS: BP 145/66
--- NOTE | 2024-12-13 16:23 | W.DCSUMMARY ---
Discharge Summary
Discharge Data
Date of Admission: 12/09/24
Date of Discharge: 12/13/24
-
Pending Results: No
Hospital Course
84 years old female with history of chronic pain syndrome with opioid dependence presented to the hospital after mechanical fall. She complained of pelvic pain. Scan of the pelvis showed right anterior medial acetabular/right superior pubic ramus
junction fracture, inferior pubic ramus fracture, subtle right symphysis pubis and possible right anteromedial and superior sacral fracture. She had x-ray of the left elbow with no evidence for acute fracture or dislocation. Scan of the head did
not show acute abnormalities. Patient was evaluated by orthopedic doctor. Recommended pain control and weightbearing as tolerated. Patient was evaluated by acting instructor Dr. Conrad and recommended longterm facility placement. Repeat blood
work showed stable hemoglobin with no leukocytosis. Pain control was discussed with the patient and her daughter. They requested to continue with opioid treatment as patient had tolerance to pain medications. An update was sent to her primary
pain doctor Dr Romano. Patient remained hemodynamically stable. coffee shop manager was involved in discharge planning. Patient was discharged to longterm facility in a stable condition.
Discharge Plan
-
Patient Disposition: [facility]/SNF
Discharge Diagnosis/Procedures: Fracture of the junction of the anteromedial right acetabulum with the right superior pubic ramus. Fracture of the inferior pubic ramus.
Subtle vertical fracture through the medial aspect of the right side of the symphysis pubis.
Seen by ortho :
Weightbearing as tolerated right lower extremity
PT OT
Pain control
Diet: As tolerated
Referrals:
Odell Romano MD [Non-Admitting Privileges, General] - in one to two weeks
Referral Note: Pain management
Demetri Herrmann MD [Active, Orthopedics] - in three to four weeks
Elli Damian MD [Family Provider, Family Practice] - in one to two weeks
Prescriptions:
New
buprenorphine [Butrans] 15 mcg/hour Patch Weekly
1 patch transdermal Q7D Qty: 2 0RF
Rx Instructions:
Last placed on 12/13/24
polyethylene glycol 3350 17 gram Powder In Packet
17 g PO DAILYPRN PRN (Reason: CONSTIPATION) Qty: 14 0RF
sennosides [Jennifer-shelley] 8.6 mg Tablet
17.2 mg PO DAILYPRN PRN (Reason: constipation) Qty: 10 0RF
morphine 15 mg tablet extended release
15 mg PO Q12H Qty: 10 0RF
Continued
atorvastatin 80 MG tablet
80 mg PO HS
clopidogrel 75 MG tablet
75 mg PO DAILY
pantoprazole 40 MG tablet,delayed release (DR/EC)
40 mg PO DAILY
acetaminophen [Tylenol Extra Strength] 500 MG tablet
500 mg PO Q8HPRN PRN (Reason: mild pain)
citalopram 20 mg Tablet
20 mg PO DAILY
PreserVision AREDS 2,148 mcg-113 mg-45 mg-17.4mg Tablet
1 tab PO BID
amlodipine 5 mg Tablet
5 mg PO DAILY Qty: 30 0RF
latanoprost 0.005 % Drops
1 drp BOTH EYES HS
lidocaine 4 % Adhesive Patch,Medicated
1 patch TOPICAL ONCE PRN (Reason: apply to lower back)
therapeutic multivitamin Tablet
1 tab PO DAILY
fexofenadine 180 mg Tablet
180 mg PO DAILY
calcium carbonate 600 mg calcium (1,500 mg) Tablet
600 mg PO DAILY
lidocaine [Lidoderm] 5 % Adhesive Patch,Medicated
1 patch TOPICAL DAILYPRN PRN (Reason: apply to lower back)
Patient Comments:
12/09/2024, pt. got some patches from her pain doctor.
diclofenac sodium [Voltaren Arthritis Pain] 1 % Gel
1 ea TOPICAL DAILY
Patient Comments:
12/09/2024, apply topically to B/L knees daily.
cholecalciferol (vitamin D3) 50 mcg (2,000 unit) Tablet
50 mcg PO DAILY
diazepam 5 mg Tablet
5 mg PO HSPRN PRN (Reason: anxiety, insomnia) Qty: 0 0RF
Changed
hydrocodone-acetaminophen 5-325 mg Tablet
1 tab PO Q6HPRN PRN (Reason: mod to severe pain) Qty: 0 0RF
Discontinued
docusate sodium 100 MG capsule
100 mg PO BID
buprenorphine 15 mcg/hour Patch Weekly
1 patch TRANSDERMAL QWEEK
Patient Comments:
12/09/2024, pt. currently wearing a patch on her right arm; does not know when she put it on.
betamethasone, augmented 0.05 % Cream
1 applic TOPICAL BID
Patient Comments:
12/09/2024, filled on 12/01/2024 for 7-day use.
Lanacane Cream
1 applic topical DAILYPRN PRN (Reason: apply to right thigh)
polyethylene glycol 3350 17 gram/dose powder
17 g PO DAILYPRN PRN (Reason: constipation)
Discharge Orders:
Discharge Patient (As Directed); Ordered 12/11/24
Ordered By: Ashley Arreola
Discharge Date and Time
Print Language: DUTCH
[2024-12-13] MEDS: LOVENOX SC (17:58)
== END 2024-12-13 18:20 | DRG 536 ==
LOC: 4 EAST ACU 19:32
PROVIDERS: Physician Assistant Medical; ADMITTING PHYSICIAN Internal Medicine; ATTENDING PHYSICIAN Internal Medicine; CONSULT PHYSICIAN Orthopaedic Surgery; CONSULT PHYSICIAN Physical Medicine & Rehabilitation; EMERGENCY PHYSICIAN Emergency Medicine; FAMILY PHYSICIAN Family Medicine
DX: S32.82XA Multiple fractures of pelvis without disruption of pelvic ring, initial encounter for closed fracture (principal); F11.20 Opioid dependence, uncomplicated; Z87.891 Personal history of nicotine dependence; W01.0XXA Fall on same level from slipping, tripping and stumbling without subsequent striking against object, initial encounter; I10 Essential (primary) hypertension; K21.9 Gastro-esophageal reflux disease without esophagitis; G89.4 Chronic pain syndrome; Z79.01 Long term (current) use of anticoagulants; Z79.02 Long term (current) use of antithrombotics/antiplatelets
CPT/HCPCS: 70450; 72192; 73080; 80048; 85025; 85027; 85610; 85730; 86850; 86900; 86901; 87811; 96374; 96375; 97163; 97166; 97530; 97535; 99285

== ENCOUNTER → 2025-04-02 12:29 | Outpatient (REF) | payer OTHER, SELFPAY | LOC: HWRAD 12:29 | PROVIDERS: ATTENDING PHYSICIAN Internal Medicine Critical Care Medicine; FAMILY PHYSICIAN Family Medicine | DX: R91.8 Other nonspecific abnormal finding of lung field (principal) | CPT/HCPCS: 71250 ==

== ENCOUNTER 2025-05-30 16:27 | Emergency (ER) | payer OTHER, SELFPAY ==
[2025-05-30 16:38] VITALS: BP 137/93
[2025-05-30 20:09] VITALS: BP 131/74
--- NOTE | 2025-05-30 23:36 | ED.GENMED ---
History of Present Illness
General
Chief Complaint: Head Injury
Source: patient
Exam Limitations: none
Time Seen by Provider: 05/30/25 19:32
Nursing documentation reviewed up to this point in time: agreed with
History of Present Illness
History of Present Illness:
Patient to the emergency department for evaluation after fall. Patient states she tripped on a curb and fell. She hit the right side of her head on the pavement. No LOC. Incident occurred just prior to arrival. Brought to the emergency
department by family for evaluation. She denies any headache/dizziness/blurred vision. She denies any wounds. She has full nonpainful range of motion to head/neck back upper and lower extremities.
Past History
Past History
ED Past Medical History: COPD, CVA (06/2013), GERD, Hypercholesterolemia and Psychiatric (G.A.D.)
ED Past Surgical History: Tonsilectomy
Social History
Tobacco: Former smoker
Alcohol: Occasional
Drug: None
Personal:
Living: with family
Employment: Retired
Family History
Family History: Other (Reviewed and Noncontributory)
Review of Systems
Review of Systems
Allergies reviewed?: No
All Other Systems: ROS reviewed and negative except as documented in HPI and ROS
Constitutional: Reports no symptoms
EENT: Reports no symptoms
Respiratory: Reports no symptoms
Cardiac: Reports no symptoms
ABD/GI: Reports no symptoms
: Reports no symptoms
Musculoskeletal: Reports no symptoms
Skin: Reports no symptoms
Neurological: Reports no symptoms
Psychiatric: Reports no symptoms
Phy Exam
General Physical Exam
General Presentation: well appearing and no apparent distress
General age: appears stated age
General Skin: warm and dry
General Habitus: normal
ENT Exam
ENT Exam: EOMI, TM's normal and neck supple
Eye Exam
Eye Exam: EOMI, conjunctiva normal and globe normal
Gastrointestinal Exam
Gastrointestinal Exam: non tender and soft
Neurological Exam
Neurological Exam: alert, oriented x3, CN II-XII intact, no motor deficits, no sensory deficits and speech normal
[place] Coma Scale
Eye Opening: Spontaneous
Verbal Response: Oriented
Motor Response: Obeys Commands
GCS Total Score: 15
Musculoskeletal Exam
Musculoskeletal Exam: full ROM and neuro vasc intact
Skin Exam
Skin Exam: normal color, warm/dry and no rash
Psychiatric Exam
Psychiatric Exam: normal mood/affect
Course
Orders/Labs/Results
Orders:
Orders
05/30/25 16:49
CT Head W/o Iv Contrast Urgent
Comment:
Reason For Exam: head injury +plavix
Vital Signs
Initial and Last Documented VS:
Initial Vital Signs
Temp Pulse Resp BP Pulse Ox
98.2 F 76 16 137/93 99
05/30/25 16:38 05/30/25 16:38 05/30/25 16:38 05/30/25 16:38 05/30/25 16:38
Last Documented Vital Signs
Temp Pulse Resp BP Pulse Ox
98 F 71 17 131/74 99
05/30/25 20:09 05/30/25 20:09 05/30/25 20:09 05/30/25 20:09 05/30/25 23:40
*Radiology
Radiology exam reviewed: radiology read reviewed
*Pulse Oximetry
SaO2: 99
Oxygen Mode of Delivery: Room air
Patient hypoxic: no
*Critical Care Note
Total Time (30-74mins, 75-104mins- exclusive of procedures): Not Applicable
Update Note
Update Note:
Patient to emergency department for evaluation of head injury after trip and fall. She reports tripping over a curb. She states she hit the right side of her head on the pavement. No LOC. No hematoma or wounds noted to the scalp. She has full
nonpainful range of motion of head and neck. Neurologically she is at her baseline, family is in room and confirms this. CT of head completed, no acute findings noted. No other injury reported. She has full range of motion to bilateral upper and
lower extremities. She is ambulatory without difficulty. She is discharged home and will follow-up with her family doctor. Patient given instructions on signs and symptoms to return to the emergency department she is agreeable to this plan.
ED Attending Note
-
Portions of this chart may have been created with voice recognition software.� Occasional wrong word or��sound alike� substitutions may have occurred due to the inherent limitations of voice recognition software.
Discharge Plan
Departure
Patient Disposition: Home (Routine Discharge)
Date of Disposition: 05/30/25
Time of Disposition: 19:59
Patient with high blood pressure during this ER visit?: No
Condition: Good
Covid-19: Not Applicable
Discharge Problem:
Head injury
Instructions: Head Injury in Adults (DC)
Prescriptions:
No Action
atorvastatin 80 MG tablet
80 mg PO HS
clopidogrel 75 MG tablet
75 mg PO DAILY
pantoprazole 40 MG tablet,delayed release (DR/EC)
40 mg PO DAILY
acetaminophen [Tylenol Extra Strength] 500 MG tablet
500 mg PO Q8HPRN PRN (Reason: mild pain)
citalopram 20 mg Tablet
20 mg PO DAILY
PreserVision AREDS 2,148 mcg-113 mg-45 mg-17.4mg Tablet
1 tab PO BID
amlodipine 5 mg Tablet
5 mg PO DAILY Qty: 30 0RF
latanoprost 0.005 % Drops
1 drp BOTH EYES HS
lidocaine 4 % Adhesive Patch,Medicated
1 patch TOPICAL ONCE PRN (Reason: apply to lower back)
therapeutic multivitamin Tablet
1 tab PO DAILY
fexofenadine 180 mg Tablet
180 mg PO DAILY
calcium carbonate 600 mg calcium (1,500 mg) Tablet
600 mg PO DAILY
lidocaine [Lidoderm] 5 % Adhesive Patch,Medicated
1 patch TOPICAL DAILYPRN PRN (Reason: apply to lower back)
Patient Comments:
12/09/2024, pt. got some patches from her pain doctor.
diclofenac sodium [Voltaren Arthritis Pain] 1 % Gel
1 ea TOPICAL DAILY
Patient Comments:
12/09/2024, apply topically to B/L knees daily.
cholecalciferol (vitamin D3) 50 mcg (2,000 unit) Tablet
50 mcg PO DAILY
buprenorphine [Butrans] 15 mcg/hour Patch Weekly
1 patch transdermal Q7D Qty: 2 0RF
Rx Instructions:
Last placed on 12/13/24
polyethylene glycol 3350 17 gram Powder In Packet
17 g PO DAILYPRN PRN (Reason: CONSTIPATION) Qty: 14 0RF
sennosides [Jennifer-shelley] 8.6 mg Tablet
17.2 mg PO DAILYPRN PRN (Reason: constipation) Qty: 10 0RF
morphine 15 mg tablet extended release
15 mg PO Q12H Qty: 10 0RF
hydrocodone-acetaminophen 5-325 mg Tablet
1 tab PO Q6HPRN PRN (Reason: mod to severe pain) Qty: 0 0RF
diazepam 5 mg Tablet
5 mg PO HSPRN PRN (Reason: anxiety, insomnia) Qty: 0 0RF
Referrals:
Elli Damian MD [Family Provider, Family Practice] - Follow up in 2-3 days
Activity Restrictions/Additional Instructions:
Follow-up with your family doctor in 1 to 2 days. Return to the emergency department for any changes in/worsening of your symptoms, especially headache not responding to Tylenol, vomiting, confusion, lethargy, coordination issues.
Interventions
Interventions:
*General Assessment Last Done: 05/30/25 20:10
*Neglect/Abuse Screening Last Done: 05/30/25 16:38
*ED COVID-19 Vaccine History Last Done: 05/30/25 20:10
*ED Influenza Vaccine History Last Done: 05/30/25 20:10
*Risk Screen - Suicide (C-SSRS) Last Done: 05/30/25 16:38
*Nursing Disposition Last Done: 05/30/25 20:11
ED- Neurological Assessment Last Done: 05/30/25 20:09
ED-Skin Assessment Last Done: 05/30/25 20:09
Discharge Date and Time
Discharge Date/Time: 05/30/25 20:12
Print Language: MALAYSIAN
== END 2025-05-30 20:12 | disposition home or self-care (01) ==
LOC: EMR 16:27
PROVIDERS: EMERGENCY PHYSICIAN Emergency Medicine; FAMILY PHYSICIAN Family Medicine
DX: S09.90XA Unspecified injury of head, initial encounter (principal); W10.1XXA Fall (on)(from) sidewalk curb, initial encounter; J44.9 Chronic obstructive pulmonary disease, unspecified; K21.9 Gastro-esophageal reflux disease without esophagitis; E78.00 Pure hypercholesterolemia, unspecified; Z86.73 Personal history of transient ischemic attack (TIA), and cerebral infarction without residual deficits; Z87.891 Personal history of nicotine dependence
CPT/HCPCS: 99284; 70450